=== PATIENT | female | born 1955 | race Caucasian/White ===

== ENCOUNTER → 2019-12-25 | Outpatient (CLI) | payer MEDICARE ==
[~2019-12-25] MED LIST: AMLO5 PO; CLON1 PO; HYDACE5 PO; OLME20 PO; OXYACE5T PO; SERT25 PO
== END | disposition home or self-care (01) ==
LOC: PLD 14:22 → LAB SHORT 14:22
DX: L72.0 Epidermal cyst (principal)
CPT/HCPCS: 88304

== ENCOUNTER → 2020-10-07 | Outpatient (CLI) | payer MEDICARE ==
[2020-10-07 13:23] LABS: BASOPHILS ABSOLUTE AUTO 0.07 K/mm3 (0.00-0.23); BASOPHILS PERCENT AUTO 1 % (0-2); EOSINOPHILS ABSOLUTE AUTO 0.25 K/mm3 (0.00-0.68); EOSINOPHILS PERCENT AUTO 4 % (0-6); Hemoglobin 13.9 g/dL (11.5-16.0); IMMATURE GRAN ABSOLUTE AUTO 0.01 K/mm3 (0.00-0.10); IMMATURE GRAN PERCENT AUTO 0 % (0-1); LYMPHOCYTES ABSOLUTE AUTO 1.85 K/mm3 (0.84-5.20); LYMPHOCYTES PERCENT AUTO 30 % (21-46); MONOCYTES ABSOLUTE AUTO 0.39 K/mm3 (0.16-1.47); MONOCYTES PERCENT AUTO 6 % (4-13); Mean Corpuscular HGB 29.8 pg (26.0-34.0); Mean Corpuscular HGB Conc 33.1 g/dL (31.5-36.5); Mean Corpuscular Volume 90 fL (80-100); Mean Platelet Volume 9.7 fL (9.1-12.4); NEUTROPHILS ABSOLUTE AUTO 3.58 K/mm3 (1.96-9.15); NEUTROPHILS PERCENT AUTO 58 % (41-73); Platelet Count 334 K/mm3 (150-400); RDW Coefficient Variation 12.8 % (11.7-14.2); RDW Standard Deviation 42.1 fL (35.1-46.3); Red Blood Cell Count 4.67 M/mm3 (3.80-5.20); White Blood Cell Count 6.15 K/mm3 (4.00-11.30)
[2020-10-07 14:03] LABS: Alanine Aminotransfer (ALT/SGP 21 U/L (12-78); Albumin, Blood 3.6 g/dL (3.4-5.0); Albumin/Globulin Ratio 0.9 (0.8-1.8); Alk Phos 112 U/L (50-136); Anion Gap 5 mmol/L (6-16); Aspartate Aminotrans (AST/SGOT 16 U/L (12-37); Bilirubin, Total 0.4 mg/dL (0.1-1.0); Blood Urea Nitrogen 14 mg/dL (8-24); Bun/Creatinine Ratio 13.7 (12.0-20.0); CHOL/HDL RATIO 3.2; CO2, Blood 29 mmol/L (21-32); Calcium, Blood 9.4 mg/dL (8.5-10.1); Chloride, Blood 106 mmol/L (98-108); Cholesterol 256 mg/dL (50-200); Creatinine, Blood 1.02 mg/dL (0.40-1.00); Globulin, Blood 4.1 g/dL (2.2-4.0); Glomerular Filtration Rate 54 (60-); Glucose, Blood 109 mg/dL (70-99); HDL Cholesterol 80 mg/dL (>39); Low Density Lipoprotein Chol 160 mg/dL (0-110); Potassium, Blood 3.6 mmol/L (3.5-5.5); Sodium, Blood 140 mmol/L (136-145); Total Protein, Blood 7.7 g/dL (6.4-8.2); Triglycerides 80 mg/dL (30-160); Very Low Density Lipoprot Chol 16 mg/dL (6-32)
== END | disposition home or self-care (01) ==
LOC: LAB SHORT 08:55 → LAB 08:55
PROVIDERS: Nurse Practitioner
DX: E78.5 Hyperlipidemia, unspecified (principal); I10 Essential (primary) hypertension
CPT/HCPCS: 80053; 80061; 85025

== ENCOUNTER → 2021-02-11 | Outpatient (CLI) | payer MEDICARE | END | disposition home or self-care (01) | LOC: LAB SHORT 13:37 → LAB 13:37 | DX: N84.1 Polyp of cervix uteri (principal) | CPT/HCPCS: 88305 ==

== ENCOUNTER → 2021-02-11 | Outpatient (CLI) | payer MEDICARE | END | disposition home or self-care (01) | LOC: LAB 09:53 → LAB SHORT 09:53 | PROVIDERS: Obstetrics & Gynecology | DX: Z01.419 Encounter for gynecological examination (general) (routine) without abnormal findings (principal); N95.0 Postmenopausal bleeding ==

== ENCOUNTER 2021-06-02 06:11 | Day surgery (SDC) | payer MEDICARE ==
[~2021-06-02] VITALS: Ht 157.5 cm; Wt 88.5 kg
[2021-06-02] MEDS ORDERED: LOSARTAN-HCTZ1 EACH PO (06:29)
[2021-06-02] MEDS ORDERED: Zocor20 MG PO (06:31)
[2021-06-02] MEDS ORDERED: ESCI20 (06:31)
--- NOTE | 2021-06-02 06:58 | NUR ---
Ambulatory in Day Surgery. History, Chart, Medications and Allergies reviewed before start of procedure.Lungs clear T/O to Auscultation. Patient confirms NPO status and agrees with scheduled surgery. Patient States Post-Procedure ride home has been arranged. Pre-Op teaching done. Pt verbalizes understanding.
--- NOTE | 2021-06-02 08:06 | NUR ---
06/02/21 0806 Shey Brewster NO PREOP ANTIBIOTICS ORDERED PER .
--- NOTE | 2021-06-02 08:54 | NUR ---
PT AWAKE, ALERT, ANSWERING QUESTIONS APPROPRIATELY. SIPPING ON JUICE WITHOUT ANY NAUSEA. NO C/O PAIN OR DISCOMFORT.
--- NOTE | 2021-06-02 09:03 | NUR ---
PT CONT TO DENY PAIN/NAUSEA. ZOHREH PO FLUIDS WITHOUT DIFFICULTY.
--- NOTE | 2021-06-02 09:08 | NUR ---
PT EATING PUDDING WITHOUT NAUSEA. REVIEWED DC INSTRUCTIONS WITH PATIENT WHO VERBALIZES UNDERSTANDING OF ALL INSTRUCTIONS GIVEN. APPROPRIATE QUESTIONS ASKED AND ANSWERED. RIDE NOTIFIED TO COME PICK PT UP.
--- NOTE | 2021-06-02 09:30 | NUR ---
IV DC TIP INTACT. PT DRESSED WITH ASSISTANCE. STEADY ON FEET. DC HOME VIA WC WITH FRIEND TO DRIVE HER.
== END 2021-06-02 23:27 | disposition home or self-care (01) ==
LOC: ORSCMMR 06:11 → ORD 07:30 → ORSCMMR 07:30
PROVIDERS: Obstetrics & Gynecology
PROC: 0UB98ZX Excision of Uterus, Via Natural or Artificial Opening Endoscopic, Diagnostic (ICD-10-PCS; principal; 2021-06-02 07:30)
PROC: 0UDB8ZX Extraction of Endometrium, Via Natural or Artificial Opening Endoscopic, Diagnostic (ICD-10-PCS; principal; 2021-06-02 07:30)
DX: N95.0 Postmenopausal bleeding (principal); C54.1 Malignant neoplasm of endometrium; N88.8 Other specified noninflammatory disorders of cervix uteri; I10 Essential (primary) hypertension; E78.5 Hyperlipidemia, unspecified; Z79.899 Other long term (current) drug therapy; E66.9 Obesity, unspecified; Z68.35 Body mass index [BMI] 35.0-35.9, adult
CPT/HCPCS: 88305; J1100; J1885; J2405; J2704; J3010; J7120

== ENCOUNTER → 2021-07-31 | Outpatient (CLI) | payer MEDICARE, OTHER ==
[~2021-07-31] MED LIST changes: +ESCI20; +LOSARTAN-HCTZ1 EACH PO; +Zocor20 MG PO
== END ==
LOC: LAB SHORT 11:47 → LAB 11:47
DX: C54.1 Malignant neoplasm of endometrium (principal)
CPT/HCPCS: 88341; 88342; 88360

== ENCOUNTER 2022-12-31 12:54 | Day surgery (SDC) | payer MEDICARE | END 2022-12-31 13:15 | disposition home or self-care (01) | LOC: ORSCSDS 12:54 | DX: H25.12 Age-related nuclear cataract, left eye (principal); Z53.9 Procedure and treatment not carried out, unspecified reason | CPT/HCPCS: J3301; J7040 ==

== ENCOUNTER 2023-01-07 12:35 | Day surgery (SDC) | payer MEDICARE ==
[~2023-01-07] VITALS: Ht 157.5 cm; Wt 86.0 kg
[2023-01-07 15:03] VITALS: BP 146/75
--- NOTE | 2023-01-07 15:03 | NUR ---
01/07/23 1503 Jose Luis Castillo SECOND SET OF VITALS DID NOT SAVE. ALL VITALS WITHIN 20% OF BASELINE.
== END 2023-01-07 14:58 | disposition home or self-care (01) ==
LOC: ORSCSDS 12:35
PROVIDERS: Ophthalmology
PROC: 08RK3JZ Replacement of Left Lens with Synthetic Substitute, Percutaneous Approach (ICD-10-PCS; principal; 2023-01-07 14:00)
DX: H25.12 Age-related nuclear cataract, left eye (principal); I10 Essential (primary) hypertension; Z68.34 Body mass index [BMI] 34.0-34.9, adult; Z79.899 Other long term (current) drug therapy
CPT/HCPCS: J2250; J3301; J7040; V2632

== ENCOUNTER 2023-03-03 12:31 | Day surgery (SDC) | payer MEDICARE ==
[~2023-03-03] VITALS: Ht 157.5 cm; Wt 82.8 kg
[2023-03-03] MEDS ORDERED: AMLODIPINE BESY10 MG PO (12:51)
[2023-03-03] MEDS ORDERED: ATOR40TA PO (12:52)
[2023-03-03] MEDS ORDERED: LOSARTAN-HCTZ1 EAC5 PO (12:53)
[2023-03-03 13:50] VITALS: BP 115/72
--- NOTE | 2023-03-03 14:10 | NUR ---
03/03/23 1410 Jose Luis Castillo IV REMOVED INTACT. SITE WNL.
== END 2023-03-03 14:08 | disposition home or self-care (01) ==
LOC: ORSCSDS 12:31
PROVIDERS: Ophthalmology
PROC: 08RJ3JZ Replacement of Right Lens with Synthetic Substitute, Percutaneous Approach (ICD-10-PCS; principal; 2023-03-03 13:30)
DX: H25.11 Age-related nuclear cataract, right eye (principal); Z96.1 Presence of intraocular lens; I10 Essential (primary) hypertension; E78.5 Hyperlipidemia, unspecified
CPT/HCPCS: J2001; J2250; J3010; J3301; J7040; V2632

== ENCOUNTER → 2024-02-22 | Outpatient (CLI) | payer MEDICARE ==
[~2024-02-22] MED LIST changes: +AMLODIPINE BESY10 MG PO; +ATOM40; +ATOR40TA PO; +LOSARTAN-HCTZ1 EAC5 PO
[2024-03-03 01:59] LABS: OVA AND PARASITE,FECAL INTERP Positive (Negative)
== END | disposition home or self-care (01) ==
LOC: LAB SHORT 19:15 → LAB 19:15
PROVIDERS: Family Medicine
DX: R19.5 Other fecal abnormalities (principal)
CPT/HCPCS: 87177; 87209

== ENCOUNTER → 2024-04-03 | Outpatient (CLI) | payer MEDICARE ==
[2024-04-03 14:37] LABS: BASOPHILS ABSOLUTE AUTO 0.05 K/mm3 (0.00-0.23); BASOPHILS PERCENT AUTO 1 % (0-2); EOSINOPHILS ABSOLUTE AUTO 0.23 K/mm3 (0.00-0.68); EOSINOPHILS PERCENT AUTO 5 % (0-6); Hemoglobin 13.9 g/dL (11.5-16.0); IMMATURE GRAN ABSOLUTE AUTO 0.01 K/mm3 (0.00-0.10); IMMATURE GRAN PERCENT AUTO 0 % (0-1); LYMPHOCYTES PERCENT AUTO 30 % (21-46); MONOCYTES ABSOLUTE AUTO 0.43 K/mm3 (0.16-1.47); MONOCYTES PERCENT AUTO 9 % (4-13); Mean Corpuscular HGB 29.4 pg (26.0-34.0); Mean Corpuscular HGB Conc 33.1 g/dL (31.5-36.5); Mean Corpuscular Volume 89 fL (80-100); Mean Platelet Volume 9.8 fL (9.1-12.4); NEUTROPHILS ABSOLUTE AUTO 2.83 K/mm3 (1.96-9.15); NEUTROPHILS PERCENT AUTO 56 % (41-73); Platelet Count 297 K/mm3 (150-400); RDW Coefficient Variation 13.4 % (11.7-14.2); Red Blood Cell Count 4.72 M/mm3 (3.80-5.20); White Blood Cell Count 5.05 K/mm3 (4.00-11.30)
[2024-04-03 14:38] LABS: C-REACTIVE PROTEIN, EXT RANGE <0.290 mg/dL (0.000-0.300)
[2024-04-03 14:42] LABS: Alanine Aminotransfer (ALT/SGP 46 U/L (12-78); Albumin, Blood 3.5 g/dL (3.4-5.0); Albumin/Globulin Ratio 0.8 (0.8-1.8); Alk Phos 132 U/L (50-136); Anion Gap 9 mmol/L (3-11); Aspartate Aminotrans (AST/SGOT 28 U/L (12-37); Bilirubin, Total 0.4 mg/dL (0.1-1.0); Blood Urea Nitrogen 22 mg/dL (8-24); Bun/Creatinine Ratio 33.1 (12.0-20.0); CO2, Blood 32 mmol/L (21-32); Calcium, Blood 9.3 mg/dL (8.5-10.1); Chloride, Blood 103 mmol/L (98-108); Cholesterol 160 mg/dL (50-200); Creatinine, Blood 0.66 mg/dL (0.40-1.00); Globulin, Blood 4.2 g/dL (2.2-4.0); Glomerular Filtration Rate 95 (60-); Glucose, Blood 104 mg/dL (70-99); HDL Cholesterol 79 mg/dL (>39); LDL/HDL RATIO 0.9; Low Density Lipoprotein Chol 74 mg/dL (0-110); Potassium, Blood 3.7 mmol/L (3.5-5.5); Sodium, Blood 140 mmol/L (136-145); Total Protein, Blood 7.7 g/dL (6.4-8.2); Triglycerides 36 mg/dL (30-160); Very Low Density Lipoprot Chol 7 mg/dL (6-32)
[2024-04-04 16:28] LABS: RHEUMATOID FACTOR <10 IU/mL (0-14)
[2024-04-04 20:44] LABS: ANTI-NUCLEAR AB ANA,IGG ELISA Detected (None Detected)
[2024-04-04 21:42] LABS: CYCLIC CITRULLINATED PEP,IGG/A 4 Units (0-19)
[2024-04-05 22:24] LABS: ANTINUCLEAR AB (ANA),HEP-2,IGG <1:80 (<1:80)
== END | disposition home or self-care (01) ==
LOC: LAB 11:36 → LAB SHORT 11:36
PROVIDERS: Family Medicine
DX: I10 Essential (primary) hypertension (principal); M25.50 Pain in unspecified joint
CPT/HCPCS: 80053; 80061; 83880; 84443; 85025; 85651; 86038; 86039; 86140; 86200; 86431

== ENCOUNTER 2024-06-27 12:08 | Emergency (ER) | payer OTHER, MEDICARE ==
[~2024-06-27] VITALS: Ht 157.5 cm; Wt 84.4 kg
[~2024-06-27 12:08] MED LIST changes: -ATOM40; +ATOM40 PO; +Aspir 8181 MG PO; +MAGNESIUM PO; +OMEP20ER PO; +VITAMIN D310 MC4; +Vitamin B Comple1 EA
[2024-06-27] MEDS ORDERED: Ondansetron HCl 2 MG / ML 2ML Vial IV ONE (12:15)
[2024-06-27] MEDS ORDERED: Morphine Sulfate 4 MG/1 ML Injection IV ONE (12:15)
[2024-06-27 12:47] LABS: BASOPHILS ABSOLUTE AUTO 0.06 K/mm3 (0.00-0.23); BASOPHILS PERCENT AUTO 1 % (0-2); EOSINOPHILS ABSOLUTE AUTO 0.25 K/mm3 (0.00-0.68); EOSINOPHILS PERCENT AUTO 4 % (0-6); Hematocrit 39.8 % (33.0-51.0); Hemoglobin 13.3 g/dL (11.5-16.0); IMMATURE GRAN ABSOLUTE AUTO 0.01 K/mm3 (0.00-0.10); IMMATURE GRAN PERCENT AUTO 0 % (0-1); LYMPHOCYTES ABSOLUTE AUTO 1.78 K/mm3 (0.84-5.20); LYMPHOCYTES PERCENT AUTO 29 % (21-46); MONOCYTES ABSOLUTE AUTO 0.41 K/mm3 (0.16-1.47); MONOCYTES PERCENT AUTO 7 % (4-13); Mean Corpuscular HGB 30.1 pg (26.0-34.0); Mean Corpuscular HGB Conc 33.4 g/dL (31.5-36.5); Mean Corpuscular Volume 90 fL (80-100); Mean Platelet Volume 9.5 fL (9.1-12.4); NEUTROPHILS PERCENT AUTO 60 % (41-73); Platelet Count 302 K/mm3 (150-400); RDW Coefficient Variation 13.4 % (11.7-14.2); RDW Standard Deviation 44.4 fL (35.1-46.3); Red Blood Cell Count 4.42 M/mm3 (3.80-5.20); White Blood Cell Count 6.21 K/mm3 (4.00-11.30)
[2024-06-27 12:58] VITALS: BP 165/90
[2024-06-27] MEDS ORDERED: Vitamin B Comple1 EA PO (13:08)
[2024-06-27] MEDS ORDERED: VITAMIN D325 MC3 (13:08)
[2024-06-27] MEDS ORDERED: HYDR1TAB94 PO (13:41)
[2024-06-27 13:56] LABS: Alanine Aminotransfer (ALT/SGP 64 U/L (12-78); Albumin, Blood 2.9 g/dL (3.4-5.0); Albumin/Globulin Ratio 0.8 (0.8-1.8); Alk Phos 145 U/L (50-136); Anion Gap 10 mmol/L (3-11); Aspartate Aminotrans (AST/SGOT 38 U/L (12-37); Bilirubin, Total 0.6 mg/dL (0.1-1.0); Blood Urea Nitrogen 15 mg/dL (8-24); Bun/Creatinine Ratio 25.8 (12.0-20.0); CO2, Blood 29 mmol/L (21-32); Calcium, Blood 9.4 mg/dL (8.5-10.1); Chloride, Blood 104 mmol/L (98-108); Creatinine, Blood 0.58 mg/dL (0.40-1.00); Globulin, Blood 3.6 g/dL (2.2-4.0); Glomerular Filtration Rate 99 (60-); Glucose, Blood 123 mg/dL (70-99); Potassium, Blood 3.5 mmol/L (3.5-5.5); Sodium, Blood 139 mmol/L (136-145); Total Protein, Blood 6.5 g/dL (6.4-8.2)
== END 2024-06-27 14:52 | disposition home or self-care (01) ==
LOC: ER 12:08
PROVIDERS: Emergency Medicine
DX: S02.2XXA Fracture of nasal bones, initial encounter for closed fracture (principal); S01.511A Laceration without foreign body of lip, initial encounter; S20.219A Contusion of unspecified front wall of thorax, initial encounter; K21.9 Gastro-esophageal reflux disease without esophagitis; I10 Essential (primary) hypertension; E78.5 Hyperlipidemia, unspecified; V89.2XXA Person injured in unspecified motor-vehicle accident, traffic, initial encounter; Z79.82 Long term (current) use of aspirin; Z79.899 Other long term (current) drug therapy; Z88.8 Allergy status to other drugs, medicaments and biological substances
CPT/HCPCS: 70450; 70486; 71260; 72125; 74177; 80053; 85025; 96374-59; 96375; 99284-25; A6590; J2270; J2405; Q9967